=== PATIENT | female | born 1990 | race African-American/Black ===

== ENCOUNTER 2019-01-15 18:48 | Emergency (ER) | payer MEDICARE, BC | END 2019-01-15 21:37 | disposition home or self-care (01) | LOC: E/R 18:48 | DX: M25.531 Pain in right wrist (principal); I10 Essential (primary) hypertension; E11.9 Type 2 diabetes mellitus without complications; Z79.82 Long term (current) use of aspirin; Z79.84 Long term (current) use of oral hypoglycemic drugs; Z95.0 Presence of cardiac pacemaker | CPT/HCPCS: 73110; 73110-RT; 99283-25 ==